=== PATIENT | female | born 1955 | race Caucasian/White ===

== ENCOUNTER 2021-07-24 13:01 | Outpatient (CLI) | payer MEDICARE, BC, SELFPAY ==
--- NOTE | 2021-07-24 13:09 | XR_ITS ---
WS: [id number] SCREENING DEXA SCAN [employer] CLINICAL INFORMATION: POSTMENOPAUSAL COMPARISON: None. FINDINGS: The L1-L4 bone mineral density measures 0.787 g/cm2. This corresponds to a T score score of -3.3 and Z score of -1.1. Left femoral neck bone mineral density measures 0.688 g/cm2. This corresponds to a T score of -2.5 an d Z score of -0.9. Right femoral neck bone mineral density measures 0.711 g/cm2. This corresponds to a T score -2.4of an d Z score of -0.7. Mean femoral neck bone mineral density measures 0.699 g/cm2. This corresponds to a T score of -2.4 an d Z score of -0.8. XR/XR DEXA axial skeleton* [id number] IMPRESSION: Osteoporosis lumbar spine. Osteoporosis femoral necks. Patient's FRAX calculated 10 year probability for major osteoporotic fracture i s 26.6 % and osteoporotic hip fracture is 9.7%.
== END 2021-07-24 13:02 | disposition home or self-care (01) ==
PROVIDERS: Visit Provider Family Medicine
DX: Z78.0 Asymptomatic menopausal state (principal); M81.0 Age-related osteoporosis without current pathological fracture
CPT/HCPCS: 77080

== ENCOUNTER → 2023-04-15 08:49 | Outpatient (BNVA) | payer MEDICARE, BC, SELFPAY | PROVIDERS: PCP Family Medicine; Visit Provider Family Medicine | DX: Z00.00 Encounter for general adult medical examination without abnormal findings (principal); M81.0 Age-related osteoporosis without current pathological fracture | CPT/HCPCS: 80053; 80061 ==

== ENCOUNTER → 2024-06-10 09:12 | Outpatient (BNVA) | payer MEDICARE, SELFPAY | PROVIDERS: PCP Family Medicine; Visit Provider Family Medicine | DX: Z00.00 Encounter for general adult medical examination without abnormal findings (principal) | CPT/HCPCS: 80053; 80061 ==

== ENCOUNTER 2024-06-21 13:48 | Outpatient (CLI) | payer MEDICARE, SELFPAY ==
--- NOTE | 2024-06-21 14:00 | XR_ITS ---
WS: [id number] SCREENING DEXA SCAN [employer] CLINICAL INFORMATION: f/u on osteoporosis COMPARISON: 2021 FINDINGS: The L1-L4 bone mineral density measures 0.755 g/cm2. This corresponds to a T score score of -3.5 and Z score of -1.4. Left femoral neck bone mineral density measures 0.671 g/cm2. This corresponds to a T score of -2.7 an d Z score of -0.9. Right femoral neck bone mineral density measures 0.669 g/cm2. This corresponds to a T score -2.7of an d Z score of -0.9. Mean femoral neck bone mineral density measures 0.670 g/cm2. This corresponds to a T score of -2.7 an d Z score of -0.9. XR/XR DEXA axial skeleton* [id number] IMPRESSION: Osteoporosis lumbar spine. Osteoporosis femoral necks. Patient's FRAX calculated 10 year probability for major osteoporotic fracture i s 28.9% and osteoporotic hip fracture is 11.5%. Bone mineral density lumbar spine decreased -4.1% Bone mineral density femoral necks decreased -4.1%
== END 2024-06-21 13:49 | disposition home or self-care (01) ==
LOC: RAD 13:50
PROVIDERS: PCP Family Medicine; Visit Provider Family Medicine
DX: Z13.820 Encounter for screening for osteoporosis (principal); M81.0 Age-related osteoporosis without current pathological fracture
CPT/HCPCS: 77080

== ENCOUNTER → 2025-06-13 08:38 | Outpatient (BNVA) | payer MEDICARE, SELFPAY | PROVIDERS: PCP Family Medicine; Visit Provider Family Medicine | DX: Z00.00 Encounter for general adult medical examination without abnormal findings (principal) | CPT/HCPCS: 80053; 80061; 85025 ==